=== PATIENT | female | born 1995 | race Caucasian/White ===

== ENCOUNTER 2016-06-07 09:13 | Outpatient (CLI) | payer OTHER ==
--- NOTE | 2016-06-07 11:37 | DIAGNOSTIC IMAGING REPORT ---
PROCEDURE: US OB DETAILED ANATOMIC INDICATION: ANATOMY TECHNIQUE: Dee scale, color, and spectral Doppler images of the second trimester gravid uterus were obtained. COMPARISON: None. FINDINGS: A single living intrauterine is in breech presentation. There is regular cardiac activity at a rate of 143 beats per minute. The placenta is posterior and away from the internal cervical os. The cervix is closed measuring approximately 3.8 cm in length. The amniotic fluid volume is subjectively normal. Biparietal diameter 4.4 cm of 19 weeks and 3-day Head circumference 17.2 cm of 19 weeks and 5 days Abdominal circumference 1.4 cm of 19 weeks and 3 days Femur length 3.3 cm at 20 weeks and 3 days Head to abdominal circumference ratio and femur length to abdominal circumference ratios are normal. Estimated weight 316 g Composite gestational age 19 weeks and 5 days, LUTHER 10/27/2016 There was visualization of a number of normal structures including the intracranial contents, facial features, nuchal region, spine, diaphragm, fluid-filled stomach, kidneys, abdomen, urinary bladder, upper and lower extremities, and genitals. A three-vessel umbilical cord, normal and placental cord insertion sites were seen. Cardiac anatomy not well seen. Recommend repeat scan in the 1-2 weeks. IMPRESSION: 1. Single living intrauterine with a composite gestational age of 90 weeks and 5 days, LUTHER 10/27/2016. 2. Cardiac anatomy not well seen secondary to position. Recommend repeat scan in 1-2 weeks.
== END 2016-06-07 23:00 ==
LOC: US SRH 09:13
DX: Z34.02 Encounter for supervision of normal first pregnancy, second trimester (principal); Z3A.19 19 weeks gestation of pregnancy

== ENCOUNTER 2016-06-15 10:53 | Outpatient (CLI) | payer OTHER ==
--- NOTE | 2016-06-23 12:24 | DIAGNOSTIC IMAGING REPORT ---
PROCEDURE: US OB LIMITED INDICATION: CARDIAC ANAATOMY NOT WEL SEEN TECHNIQUE: Transabdominal iqbal scale and color Doppler imaging was obtained of the gravid uterus. COMPARISON: OB ultrasound 06/07/2016 FINDINGS: Single live intrauterine is in vertex presentation. Regular heart rate at 141 beats per minute. Placenta is posterior and has a normal appearance without previa or abruption. The cervix is closed and measures 3.6 cm in length. Amniotic fluid volume is subjectively normal. Four-chambered heart and outflow tracts were visualized and normal. IMPRESSION: 1. Four-chambered heart and outflow tracts were visualized and normal.
== END 2016-06-15 23:00 ==
LOC: US SRH 10:53
DX: Z34.02 Encounter for supervision of normal first pregnancy, second trimester (principal)

== ENCOUNTER 2016-07-30 00:54 | Outpatient (CLI) | payer OTHER | END 2016-07-30 02:45 | disposition home or self-care (01) | LOC: OBC SRH 00:54 → OB SRH 00:57 → OBC SRH 02:45 | DX: O26.852 Spotting complicating pregnancy, second trimester (principal); Z3A.27 27 weeks gestation of pregnancy ==

== ENCOUNTER 2016-08-16 09:12 | Outpatient (CLI) | payer OTHER | END 2016-08-16 23:00 | LOC: LAB SRH 09:12 | DX: Z34.02 Encounter for supervision of normal first pregnancy, second trimester (principal) | CPT/HCPCS: 90039; 90074; 91162; 91163 ==